=== PATIENT | male | born 1985 | race Caucasian/White ===

== ENCOUNTER 2017-04-21 14:52 | Emergency (ER) | payer OTHER ==
[~2017-04-21] VITALS: Ht 182.9 cm; Wt 120.3 kg
--- NOTE | 2017-04-21 16:18 | EKG ---
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
[2017-04-21] MEDS ORDERED: KETOROLAC 60 MG/2 ML INJ. IM ONE (16:30)
[2017-04-21] MEDS ORDERED: ORPHENADRINE CITRATE 60 MG/2 ML VIAL. IM ONE (16:30)
--- NOTE | 2017-04-21 16:34 | PHYS DOC ---
Past Medical History Past Medical History: Diabetes-Type II, Hypertension, Schizophrenia, Other Additional Past Medical Histor: BORDERLINE PERSONALITY D/O Past Surgical History: No Surgical History Alcohol Use: None Drug Use: None Adult General Chief Complaint Chief Complaint: LOWER BACK PAIN OR INJURY 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 He states that he had been given Tylenol for the pain and discomfort. Patient states that he is continue to have increased pain and discomfort that radiates down the right leg constantly, and states that occasionally goes down the upper part of the left leg. Patient denies any difficulty with ambulation. He does state that he has decreased pain and discomfort with lying flat. Patient does state he has had occasional loss of stool 3. Patient denies any loss of bladder. Patient denies any numbness or tingling down into his feet however the numbness and tingling does go down to the knee area bilaterally. Patient's states that he is incarcerated at the [facility]. He was seen by the physician today and had a urinalysis completed which was negative and a prostate exam. Review of Systems Review of Systems Constitutional: Denies fever or chills [] Eyes: Denies change in visual acuity, redness, or eye pain [] HENT: Denies nasal congestion or sore throat [] Respiratory: Denies cough or shortness of breath [] Cardiovascular: No additional information not addressed in HPI [] GI: Denies abdominal pain, nausea, vomiting, bloody stools or diarrhea [] : Denies dysuria or hematuria [] Musculoskeletal: lower back pain Integument: Denies rash or skin lesions [] Neurologic: Denies headache, focal weakness or sensory changes [] Endocrine: Denies polyuria or polydipsia [] All other systems were reviewed and found to be within normal limits, except as documented in this note. Current Medications Current Medications Current Medications Medications (Trade) Dose Ordered Sig/Terri Start Time Stop Time Status Last Admin Dose Admin Acetaminophen (Tylenol) 1,000 mg 1X ONCE 04/21/17 18:30 04/21/17 18:31 DC 04/21/17 18:36 1,000 MG Gadobutrol (Gadavist) 10 mmol 1X ONCE 04/21/17 19:15 04/21/17 19:16 DC 04/21/17 19:27 10 MMOL Ketorolac Tromethamine (Toradol Im) 60 mg 1X ONCE 04/21/17 16:30 04/21/17 16:36 DC Ketorolac Tromethamine (Toradol) 30 mg 1X ONCE 04/21/17 16:45 04/21/17 16:46 DC 04/21/17 16:44 30 MG Orphenadrine Citrate (Norflex) 60 mg 1X ONCE 04/21/17 16:30 04/21/17 16:31 DC 04/21/17 16:44 60 MG Allergies Allergies Allergies Coded Allergies Type Severity Reaction Last Updated Verified hydrochlorothiazide Allergy Intermediate Unknown 04/21/17 Yes quetiapine Adverse Reaction Intermediate Unknown 04/21/17 Yes Physical Exam Physical Exam Constitutional: Well developed, well nourished, no acute distress, non-toxic appearance. [] HENT: Normocephalic, atraumatic, bilateral external ears normal, oropharynx moist, no oral exudates, nose normal. Bilateral tympanic membranes was normal. Throat with no erythematous no redness or drainage or exudate noted. Eyes: PERRLA, EOMI, conjunctiva normal, no discharge. [] Neck: Normal range of motion, no tenderness, supple, no stridor. [] Cardiovascular:Heart rate regular rhythm, no murmur [] Lungs & Thorax: Bilateral breath sounds clear to auscultation [] Abdomen: Bowel sounds normal, soft, no tenderness, no masses, no pulsatile masses. [] Skin: Warm, dry, no erythema, no rash. [] Back: No thoracic spine tenderness, no CVA tenderness. Patient with lumbar tenderness, no crepitus no deformities and no step-offs noted. Extremities: No tenderness, no cyanosis, no clubbing, ROM intact, no edema. Patient with full range of motion of the extremities however the extremities are weak. Neurologic: Alert and oriented X 3, normal motor function, normal sensory function, no focal deficits noted. Patient with good sensation noted in the groin area. Psychologic: Affect normal, judgement normal, mood normal. [] Rectal exam was completed with TUYET Dumont at bedside patient was noted to have good rectal tone. Current Patient Data Vital Signs Vital Signs Date Time Temp Pulse Resp B/P (MAP) Pulse Ox O2 Delivery O2 Flow Rate FiO2 12/22/17 20:07 94 20 175/93 (120) 96 Room Air 04/21/17 15:40 102.4 102.4 Lab Values Laboratory Tests Test 04/21/17 15:55 04/21/17 16:37 White Blood Count 8.3 x10^3/uL (4.0-11.0) Red Blood Count 5.07 x10^6/uL (4.30-5.70) Hemoglobin 14.6 g/dL (13.0-17.5) Hematocrit 43.5 % (39.0-53.0) Mean Corpuscular Volume 86 fL (79-100) Mean Corpuscular Hemoglobin 29 pg (25-35) Mean Corpuscular Hemoglobin Concent 34 g/dL (31-37) Red Cell Distribution Width 13.6 % (11.5-14.5) Platelet Count 208 x10^3/uL (140-400) Neutrophils (%) (Auto) 67 % (31-73) Lymphocytes (%) (Auto) 18 % (24-48) L Monocytes (%) (Auto) 13 % (0-9) H Eosinophils (%) (Auto) 1 % (0-3) Basophils (%) (Auto) 1 % (0-3) Neutrophils # (Auto) 5.6 x10^3uL (1.8-7.7) Lymphocytes # (Auto) 1.5 x10^3/uL (1.0-4.8) Monocytes # (Auto) 1.1 x10^3/uL (0.0-1.1) Eosinophils # (Auto) 0.0 x10^3/uL (0.0-0.7) Basophils # (Auto) 0.0 x10^3/uL (0.0-0.2) Sodium Level 132 mmol/L (136-145) L Potassium Level 4.2 mmol/L (3.5-5.1) Chloride Level 95 mmol/L (98-107) L Carbon Dioxide Level 29 mmol/L (21-32) Anion Gap 8 (6-14) Blood Urea Nitrogen 13 mg/dL (8-26) Creatinine 0.8 mg/dL (0.7-1.3) Estimated GFR (Cockcroft-Gault) 112.8 BUN/Creatinine Ratio 16 (6-20) Glucose Level 214 mg/dL (70-99) H Calcium Level 9.0 mg/dL (8.5-10.1) Total Bilirubin 0.4 mg/dL (0.2-1.0) Aspartate Amino Transferase (AST) 27 U/L (15-37) Alanine Aminotransferase (ALT) 41 U/L (16-63) Alkaline Phosphatase 65 U/L (46-116) Total Protein 8.3 g/dL (6.4-8.2) H Albumin 4.2 g/dL (3.4-5.0) Albumin/Globulin Ratio 1.0 (1.0-1.7) Urine Collection Type Unknown Urine Color Yellow Urine Clarity Clear Urine pH 6.5 Urine Specific [place] 1.030 Urine Protein 30 mg/dL (NEG-TRACE) Urine Glucose (UA) 500 mg/dL (NEG) Urine Ketones (Stick) Trace mg/dL (NEG) Urine Blood Negative (NEG) Urine Nitrite Negative (NEG) Urine Bilirubin Negative (NEG) Urine Urobilinogen Dipstick 0.2 mg/dL (0.2 mg/dL) Urine Leukocyte Esterase Negative (NEG) Urine RBC 0 /HPF (0-2) Urine WBC Occ /HPF (0-4) Urine Squamous Epithelial Cells Occ /LPF Urine Bacteria 0 /HPF (0-FEW) Urine Mucus Slight /LPF Laboratory Tests 04/21/17 15:55 Laboratory Tests 04/21/17 15:55 EKG EKG [] Radiology/Procedures Radiology/Procedures [] Course & Med Decision Making Course & Med Decision Making Pertinent Labs and Imaging studies reviewed. (See chart for details) CBC within normal limits, CMP with elevated glucose. Patient was also noted to have a fever here in the emergency Department however CBC was normal patient denied any ear pain or discomfort no throat pain no cough or congestion. Breath sounds were clear bilaterally bilateral tympanic membranes were normal throat was normal. Urinalysis was negative. MRI was completed with impressions noted central disc extrusion at L4-L5 with moderate facet arthropathy resulting in severe spinal canal stenosis there is severe lateral recess stenosis left greater than right this is likely affecting the transverse left L5 nerve. Patient did have a CT scan of his back identifying calcified central disc protrusion at L4-L5 with mild to moderate facet arthropathy be resulting in moderate neural foraminal stenosis and moderate to severe spinal canal stenosis , also noted mild subchondral disc bulge at L5-S1 with moderate facet arthropathy resulting in severe neural foraminal stenosis and no spinal canal stenosis. Patient had been provided with Toradol, Tylenol, and Norflex here in the emergency department. Patient states his penis and 8/10. Patient's initial pain was a 10/10. Patient will be discharged back to [facility] with recommendations for no use of steroids, no lifting over 5 pounds. Recommendation to follow up with Dr. Martinez neurosurgeon. Also recommended ibuprofen 800 mg every 8 hours with Flexeril every 8 hours as needed for muscle spasms and stated that this medication will cause drowsiness do not take any be alert and oriented. Patient was also instructed to return back to emergency department as needed. [] Dragon Disclaimer Dragon Disclaimer This electronic medical record was generated, in whole or in part, using a voice recognition dictation system. Departure Departure Impression: Primary Impression: Back pain Additional Impression: Fever Disposition: 01 HOME, SELF-CARE Condition: STABLE Referrals: NO PCP (PCP) UZMA DHILLON MD Patient Instructions: Back Pain, Adult, [id number] Additional Instructions: Activity as tolerated. No walking up stairs or down stairs. No lifting over 5 pounds. Ibuprofen 800 mg every 8 hours with food stopped taking he developed upset stomach. Flexeril as needed for muscle spasms this medication will cause drowsiness do not take any be alert and oriented. You may attempt to use ice packs on 20 minutes off 20 minutes several times a day. Follow-up with Dr. Martinez within the next week. Return back to emergency #symptoms of become worse. Scripts Ibuprofen (IBUPROFEN) 800 Mg Tablet 800 MG PO PRN Q6HRS Y for INFLAMMATION, #30 TAB Prov: EDY HUERTAS SPRAY MIXER 04/21/17 Cyclobenzaprine Hcl (CYCLOBENZAPRINE HCL) 10 Mg Tablet 1 TAB PO TID Y for MUSCLE SPASMS, #30 TAB Prov: EDY HUERTAS [employer]ER 04/21/17 Problem Qualifiers Primary Impression: Back pain Back pain location: low back pain Chronicity: unspecified Back pain laterality: midline Sciatica presence: unspecified whether sciatica present Qualified Codes: M54.5 - Low back pain EDY HUERTAS SPR[employer] M[employer]ER Apr 21, 2017 16:34
[2017-04-21] MEDS ORDERED: KETOROLAC 30 MG/ML INJ. IV ONE (16:45)
[2017-04-21 17:10] LABS: BACTERIA,URINE 0 /HPF (0-FEW); BILIRUBIN,URINE NEGATIVE (NEG); GLUCOSE,URINE 500 mg/dL (NEG); NITRITE,URINE NEGATIVE (NEG); PH,URINE 6.5; PROTEIN,URINE 30 mg/dL (NEG-TRACE); RBC,URINE 0 /HPF (0-2); SQUAMOUS EPITHELIAL CELL,UR OCC /LPF; UROBILINOGEN,URINE 0.2 mg/dL (0.2 mg/dL); WBC,URINE OCC /HPF (0-4)
--- NOTE | 2017-04-21 17:35 | RAD ---
PQRS Compliance Statement: One or more of the following individualized dose reduction techniques were utilized for this examination: 1. Automated exposure control 2. Adjustment of the mA and/or kV according to patient size 3. Use of iterative reconstruction technique CT lumbar spine without contrast 04/21/2017 INDICATION: Lower back pain status post fall. COMPARISON: None available TECHNIQUE: Multiple axial CT images of the lumbar spine were obtained without intravenous contrast. Coronal and sagittal reformats are provided. FINDINGS: There is minimal retrolisthesis of L5 on S1. Vertebral body heights are maintained. There is no acute fracture. Visualized portions of the kidneys appear normal. Visualized portions of the retroperitoneum are normal. Abdominal aorta is normal in caliber. Urinary bladder is normal in appearance. Prostate and seminal vesicles appear normal. L1-L2: Disc is normal in configuration. There is mild facet arthropathy. No neuroforaminal or spinal canal stenosis. L2-L3: There is minimal disc bulge. There is mild facet arthropathy. No neuroforaminal or spinal canal stenosis. L3-L4: There is mild superficial disc bulge. There is mild to moderate facet arthropathy with ligamentum flavum infolding. There is mild neuroforaminal stenosis. Mild spinal canal stenosis. L4-L5: There is a central calcified disc protrusion. There is mild to moderate facet arthropathy. There is ligamentum flavum infolding. There is moderate neuroforaminal stenosis. There is moderate to severe spinal canal stenosis. L5-S1: There is mild circumferential disc bulge. There is moderate facet arthropathy. There is severe neuroforaminal stenosis. No spinal canal stenosis. IMPRESSION: 1. There is a calcified central disc protrusion at L4-L5 with mild/moderate facet arthropathy resulting in moderate neuroforaminal stenosis and moderate to severe spinal canal stenosis. 2. Mild subchondral disc bulge at L5-S1 with moderate facet arthropathy resulting in severe neuroforaminal stenosis and no spinal canal stenosis. Electronically signed by: Danita Beltran MD (04/21/2017 5:32 PM) [facility]
[2017-04-21 17:51] LABS: BASO % 1 % (0-3); EOS % 1 % (0-3); HEMATOCRIT 43.5 % (39.0-53.0); HEMOGLOBIN 14.6 g/dL (13.0-17.5); LYMPH # 1.5 x10^3/uL (1.0-4.8); LYMPH % 18 % (24-48); MEAN CORPUSCULAR HEMOGLOBIN 29 pg (25-35); MEAN CORPUSCULAR HGB CONC 34 g/dL (31-37); MEAN CORPUSCULAR VOLUME 86 fL (79-100); MONO % 13 % (0-9); NEUT % 67 % (31-73); PLATELET COUNT 208 x10^3/uL (140-400); RED BLOOD COUNT 5.07 x10^6/uL (4.30-5.70); RED CELL DISTRIBUTION WIDTH 13.6 % (11.5-14.5); WHITE BLOOD COUNT 8.3 x10^3/uL (4.0-11.0)
[2017-04-21 17:57] LABS: CREATININE 0.8 mg/dL (0.7-1.3); GFR 112.8; POTASSIUM 4.2 mmol/L (3.5-5.1)
[2017-04-21 18:03] LABS: ALBUMIN 4.2 g/dL (3.4-5.0); TOTAL BILIRUBIN 0.4 mg/dL (0.2-1.0); TOTAL PROTEIN 8.3 g/dL (6.4-8.2)
[2017-04-21] MEDS ORDERED: ACETAMINOPHEN 500 MG TABLET PO ONE (18:30)
[2017-04-21] MEDS ORDERED: GADOBUTROL 10 MMOL/10 ML VIAL IV ONE (19:15)
[2017-04-21 20:07] VITALS: BP 175/93
--- NOTE | 2017-04-21 20:08 | RAD ---
EXAMINATION: Magnetic resonance imaging (MRI) of the lumbar spine without contrast HISTORY: Acute low back pain. TECHNIQUE: Multiplanar multi-weighted MRI of the lumbar spine was performed without intravenous contrast using the standard lumbar spine protocol. Contrast information: None administered. COMPARISON: None available. FINDINGS: There is minimal retrolisthesis of L4 and L5 and L5 on S1. Vertebral bodies demonstrate normal signal intensity on all sequences. There are no compression fractures. The conus medullaris terminates at the level of L1. The distal spinal cord signal intensity is normal. There is disc desiccation at L4-L5 and L5-S1. Annular fissure is identified at L4-L5. Limited views of the abdomen and pelvis show no soft tissue abnormality. The aorta is normal. There is congenital narrowing of the spinal canal secondary to shortened pedicles. L3-L4: The disc is normal in configuration. There is no facet arthropathy. There is no neuroforaminal stenosis. There is no spinal canal stenosis. L4-L5: There is a central disc extrusion. There is moderate facet arthropathy. There is mild to moderate left and mild right neuroforaminal stenosis. Severe spinal canal stenosis. There is severe lateral recess stenosis, likely affecting the traversing left L5 nerve. L5-S1: There is a central disc protrusion. There is moderate facet arthropathy. There is moderate left neuroforaminal stenosis. There is no spinal canal stenosis. IMPRESSION: Central disc extrusion at L4-L5 with moderate facet arthropathy resulting in severe spinal canal stenosis. There is severe lateral recess stenosis, left greater than right. This likely affects the traversing left L5 nerve. Electronically signed by: Danita Beltran MD (04/21/2017 8:04 PM) [facility]
[2017-04-21] MEDS ORDERED: CYCL10TA2 PO (20:41)
[2017-04-21] MEDS ORDERED: IBUP-1060 PO (20:41)
== END 2017-04-21 21:04 | disposition home or self-care (01) ==
LOC: ER 14:52 → EEVIPCON 14:52 → ER 21:04
DX: M54.5 Low back pain (principal); M79.604 Pain in right leg; R50.9 Fever, unspecified; E11.9 Type 2 diabetes mellitus without complications; F20.9 Schizophrenia, unspecified; I10 Essential (primary) hypertension; Z88.8 Allergy status to other drugs, medicaments and biological substances
CPT/HCPCS: 36415; 72131; 72158; 80053; 81001; 85025; 93005; 96372; 96374; 96375; 99285; A9585; J1885; J2360

== ENCOUNTER 2018-04-19 00:39 | Emergency (ER) | payer OTHER ==
[~2018-04-19] VITALS: Ht 185.4 cm; Wt 127.0 kg
[~2018-04-19 00:39] MED LIST: CYCL10TA2 PO; IBUP-1060 PO
[2018-04-19] MEDS ORDERED: FAMOTIDINE 20 MG/2 ML VIAL IVP ONE (01:00)
[2018-04-19 01:06] LABS: BARBITURATES NEG (NEG); BENZODIAZEPINES NEG (NEG); CANNABINOIDS NEG (NEG); COCAINE NEG (NEG); METHADONE NEG (NEG); OPIATES NEG (NEG); PHENCYCLIDINE NEG (NEG)
[2018-04-19 01:10] LABS: BASO # 0.1 x10^3/uL (0.0-0.2); BASO % 1 % (0-3); EOS # 0.1 x10^3/uL (0.0-0.7); EOS % 1 % (0-3); HEMATOCRIT 40.4 % (39.0-53.0); HEMOGLOBIN 13.9 g/dL (13.0-17.5); LYMPH # 2.6 x10^3/uL (1.0-4.8); LYMPH % 31 % (24-48); MEAN CORPUSCULAR HEMOGLOBIN 29 pg (25-35); MEAN CORPUSCULAR HGB CONC 34 g/dL (31-37); MEAN CORPUSCULAR VOLUME 84 fL (79-100); MONO # 0.6 x10^3/uL (0.0-1.1); MONO % 8 % (0-9); NEUT # 4.8 x10^3uL (1.8-7.7); NEUT % 59 % (31-73); PLATELET COUNT 173 x10^3/uL (140-400); RED BLOOD COUNT 4.84 x10^6/uL (4.30-5.70); RED CELL DISTRIBUTION WIDTH 14.1 % (11.5-14.5); WHITE BLOOD COUNT 8.1 x10^3/uL (4.0-11.0)
[2018-04-19] MEDS ORDERED: FAMOTIDINE 20 MG TABLET. PO ONE (01:15)
[2018-04-19 01:39] LABS: AMPHETAMINE/METHAMPHETAMINE NEG (NEG)
[2018-04-19 01:45] LABS: CREATININE 1.3 mg/dL (0.7-1.3); POTASSIUM 3.8 mmol/L (3.5-5.1)
[2018-04-19 01:50] LABS: ALBUMIN 4.8 g/dL (3.4-5.0); ALBUMIN/GLOBULIN RATIO 1.5 (1.0-1.7); TOTAL BILIRUBIN 0.5 mg/dL (0.2-1.0); TOTAL PROTEIN 8.1 g/dL (6.4-8.2)
[2018-04-19 01:52] LABS: ACETAMIN < 2 mcg/ml (10-30); ETHANOL < 10 mg/dL (0-10)
[2018-04-19] MEDS ORDERED: IV NORMAL SALINE 1000ML BAG 1,000 ML IV ONE ×2 (02:00→03:00)
[2018-04-19] MEDS ORDERED: ONDANSETRON PF 4 MG/2 ML VIAL. IV ONE (03:00)
[2018-04-19 04:18] VITALS: BP 142/75
[2018-04-19] MEDS ORDERED: FAMO-63 PO (04:18)
[2018-04-19] MEDS ORDERED: ONDA4TAB7 PO (04:18)
--- NOTE | 2018-04-19 05:26 | EKG ---
[facility] [address] [place] [address] Test Date: 2018-04-19 Test Time: 00:47:34 Pat Name: AIRAM WINSLOW Department: Room: Gender: M Nursing Educator: : 1985 Requested By: ARNOLD MELO Order Number: [id number] Reading MD: Measurements Intervals [place] Rate: 121 P: CT: QRS: -26 QRSD: 74 T: 24 QT: 360 QTc: 514 Interpretive Statements ACCELERATED JUNCTIONAL RHYTHM LEFTWARD AXIS ABNORMAL ECG RI6.01 No previous ECG available for comparison
--- NOTE | 2018-04-19 05:41 | PHYS DOC ---
Past Medical History Past Medical History: Diabetes-Type II, Hypertension, Schizophrenia, Other Additional Past Medical Histor: BORDERLINE PERSONALITY D/O Past Surgical History: Other Additional Past Surgical Histo: LAMINECTOMY, VISECTOMY Alcohol Use: None Drug Use: None Adult General Chief Complaint Chief Complaint: OVERDOSE HPI HPI Patient is a 32 year old male inmate currently under custody presents with intentional drug overdose. Patient had a witnessed naproxen overdose and allegedly ingested 30, 250 mg naproxen tablets 4 hours prior to ED arrival. Denies coingestants. Denies chest pain, palpitations, shortness of breath or abdominal pain. Does report nausea, no hemoptysis, coffee-ground emesis melena or hematochezia. Patient reports feeling depressed and anxious as he is going to be released from correction in 6 months and has no place to live.[] Review of Systems Review of Systems Constitutional: Denies fever or chills [] Eyes: Denies change in visual acuity, redness, or eye pain [] HENT: Denies nasal congestion or sore throat [] Respiratory: Denies cough or shortness of breath [] Cardiovascular: No additional information not addressed in HPI [] GI: Denies abdominal pain, nausea, vomiting, bloody stools or diarrhea [] : Denies dysuria or hematuria [] Musculoskeletal: Denies back pain or joint pain [] Integument: Denies rash or skin lesions [] Neurologic: Denies headache, focal weakness or sensory changes [] Endocrine: Denies polyuria or polydipsia [] All other systems were reviewed and found to be within normal limits, except as documented in this note. Current Medications Current Medications Current Medications Medications (Trade) Dose Ordered Sig/Terri Start Time Stop Time Status Last Admin Dose Admin Famotidine (Pepcid Vial) 40 mg 1X ONCE 04/19/18 01:00 04/19/18 01:01 DC 04/19/18 01:11 40 MG Famotidine (Pepcid) 40 mg 1X ONCE 04/19/18 01:15 04/19/18 01:15 DC Ondansetron HCl (Zofran) 4 mg 1X ONCE 04/19/18 03:00 04/19/18 03:01 DC 04/19/18 02:50 4 MG Sodium Chloride 1,000 ml @ 1,000 mls/hr 1X ONCE 04/19/18 03:00 04/19/18 03:59 DC 04/19/18 02:57 1,000 MLS/HR Allergies Allergies Allergies Coded Allergies Type Severity Reaction Last Updated Verified hydrochlorothiazide Allergy Intermediate 04/19/18 Yes quetiapine Adverse Reaction Intermediate DRY MOUTH 04/19/18 Yes Physical Exam Physical Exam Constitutional: Well developed, well nourished, no acute distress, non-toxic appearance. [] HENT: Normocephalic, atraumatic, bilateral external ears normal, oropharynx moist, no oral exudates, nose normal. [] Eyes: PERRLA, EOMI, conjunctiva normal, no discharge. [] Neck: Normal range of motion, no tenderness, supple, no stridor. [] Cardiovascular: Tachycardic[] Lungs & Thorax: Bilateral breath sounds clear to auscultation [] Abdomen: Bowel sounds normal, soft, no tenderness, no masses, no pulsatile masses. [] Skin: Warm, dry, no erythema, no rash. [] Back: No tenderness, no CVA tenderness. [] Extremities: No tenderness. [] Neurologic: Alert and oriented X 3, normal motor function, normal sensory function, no focal deficits noted. [] Psychologic: Affect normal, judgement normal, mood normal. [] Current Patient Data Vital Signs Vital Signs Date Time Temp Pulse Resp B/P (MAP) Pulse Ox O2 Delivery O2 Flow Rate FiO2 04/19/18 04:18 101 18 142/75 (97) 95 Room Air 04/19/18 01:48 99.0 99.0 Lab Values Laboratory Tests Test 04/19/18 00:45 04/19/18 00:55 Urine Opiates Screen Neg (NEG) Urine Methadone Screen Neg (NEG) Urine Barbiturates Neg (NEG) Urine Phencyclidine Screen Neg (NEG) Urine Amphetamine/Methamphetamine Neg (NEG) Urine Benzodiazepines Screen Neg (NEG) Urine Cocaine Screen Neg (NEG) Urine Cannabinoids Screen Neg (NEG) Urine Ethyl Alcohol Neg (NEG) White Blood Count 8.1 x10^3/uL (4.0-11.0) Red Blood Count 4.84 x10^6/uL (4.30-5.70) Hemoglobin 13.9 g/dL (13.0-17.5) Hematocrit 40.4 % (39.0-53.0) Mean Corpuscular Volume 84 fL (79-100) Mean Corpuscular Hemoglobin 29 pg (25-35) Mean Corpuscular Hemoglobin Concent 34 g/dL (31-37) Red Cell Distribution Width 14.1 % (11.5-14.5) Platelet Count 173 x10^3/uL (140-400) Neutrophils (%) (Auto) 59 % (31-73) Lymphocytes (%) (Auto) 31 % (24-48) Monocytes (%) (Auto) 8 % (0-9) Eosinophils (%) (Auto) 1 % (0-3) Basophils (%) (Auto) 1 % (0-3) Neutrophils # (Auto) 4.8 x10^3uL (1.8-7.7) Lymphocytes # (Auto) 2.6 x10^3/uL (1.0-4.8) Monocytes # (Auto) 0.6 x10^3/uL (0.0-1.1) Eosinophils # (Auto) 0.1 x10^3/uL (0.0-0.7) Basophils # (Auto) 0.1 x10^3/uL (0.0-0.2) Sodium Level 139 mmol/L (136-145) Potassium Level 3.8 mmol/L (3.5-5.1) Chloride Level 101 mmol/L (98-107) Carbon Dioxide Level 25 mmol/L (21-32) Anion Gap 13 (6-14) Blood Urea Nitrogen 14 mg/dL (8-26) Creatinine 1.3 mg/dL (0.7-1.3) Estimated GFR (Cockcroft-Gault) 64.0 BUN/Creatinine Ratio 11 (6-20) Glucose Level 378 mg/dL (70-99) H Calcium Level 9.0 mg/dL (8.5-10.1) Total Bilirubin 0.5 mg/dL (0.2-1.0) Aspartate Amino Transferase (AST) 40 U/L (15-37) H Alanine Aminotransferase (ALT) 62 U/L (16-63) Alkaline Phosphatase 77 U/L (46-116) Total Protein 8.1 g/dL (6.4-8.2) Albumin 4.8 g/dL (3.4-5.0) Albumin/Globulin Ratio 1.5 (1.0-1.7) Acetaminophen Level < 2 mcg/ml (10-30) L Acetaminophen Last Dose Date Acetaminophen Last Dose Time Ethyl Alcohol Level < 10 mg/dL (0-10) Laboratory Tests 04/19/18 00:55 Laboratory Tests 04/19/18 00:55 EKG EKG [EKG: Reviewed] Radiology/Procedures Radiology/Procedures [] Course & Med Decision Making Course & Med Decision Making Pertinent Labs and Imaging studies reviewed. (See chart for details) [IV fluids, antacids, antiemetics given. Patient monitored in the emergency department with symptomatic improvement. Poison control contacted and agrees with plan to discharge peak incidents symptom. Patient will be returned to correction for further monitoring, treatment and psychiatric evaluation.] Dragon Disclaimer Dragon Disclaimer This electronic medical record was generated, in whole or in part, using a voice recognition dictation system. Departure Departure Impression: Primary Impression: Gastritis Additional Impression: Intentional drug overdose Disposition: HOME, SELF-CARE Condition: GOOD Patient Instructions: Gastritis, Adult, [id number], Overdose, Adult Additional Instructions: Take medications as directed. Follow up with [facility] for re-evaluation and mental health screening. Scripts Ondansetron Hcl (ZOFRAN) 4 Mg Tablet 1 TAB PO Q6HRS, #10 TAB 0 Refills Prov: ARNOLD MELO DO 04/19/18 Famotidine (PEPCID) 20 Mg Tablet 20 MG PO BID, #10 TAB Prov: ARNOLD MELO DO 04/19/18 Problem Qualifiers ARNOLD MELO DO Apr 19, 2018 05:41
== END 2018-04-19 04:25 | disposition home or self-care (01) ==
LOC: EEVIPCON 00:39 → ER 00:39
DX: T39.312A Poisoning by propionic acid derivatives, intentional self-harm, initial encounter (principal); K29.70 Gastritis, unspecified, without bleeding; E11.9 Type 2 diabetes mellitus without complications; I10 Essential (primary) hypertension; F20.9 Schizophrenia, unspecified; Z88.8 Allergy status to other drugs, medicaments and biological substances; Y92.89 Other specified places as the place of occurrence of the external cause
CPT/HCPCS: 36415; 80053; 80307; 85025; 93005; 96361; 96374; 96375; 99284; G0480; G6039; J2405; J3490; J7030